=== PATIENT | female | born 1980 | race Caucasian/White ===

== ENCOUNTER 2018-08-13 12:27 | Emergency (ER) | payer MEDICARE, BC ==
[~2018-08-13] VITALS: Ht 160 cm; Wt 97.5 kg
[2018-08-13] MEDS ORDERED: IV NORMAL SALINE 1000ML BAG 1,000 ML IV SCH (12:57)
[2018-08-13] MEDS ORDERED: PROCHLORPERAZINE 10 MG/2 ML VIAL. IV ONE (13:00)
[2018-08-13] MEDS ORDERED: HALOPERIDOL LACTATE 5 MG/ML VIAL. IVP ONE (13:00)
--- NOTE | 2018-08-13 13:04 | PHYS DOC ---
Past Medical History Past Medical History: Fibromyalgia, IBS, Migraines, Other Additional Past Medical Histor: gastroporesis Past Medical History CYCLIC VOMITING SYNDROME Past Surgical History: Cholecystectomy, Tubal ligation, Other Additional Past Surgical Histo: deviated septum repair Alcohol Use: None Drug Use: Marijuana Adult General Chief Complaint Chief Complaint: NAUSEA/VOMITING/DIARRHA HPI HPI Patient is a 38 year old female presented to ER today for evaluation of nausea vomiting and abdominal pain. Patient says she had a long-standing history of gastroparesis and cyclic vomiting syndrome. Patient had been evaluated numerous time at [facility]. Patient was seen by her GI doctor today, who sent her here for evaluation because of the nausea vomiting. Patient was referred by her GI doctor to [facility] for further evaluation and treatment but she declined to go there because of financial constraint. She denies any fever. Patient denies any chest pain or any trouble breathing. She said her symptoms today is very typical of her chronic problem. Review of Systems Review of Systems Constitutional: Denies fever or chills [] Eyes: Denies change in visual acuity, redness, or eye pain [] HENT: Denies nasal congestion or sore throat [] Respiratory: Denies cough or shortness of breath [] Cardiovascular: No additional information not addressed in HPI [] GI: Positive abdominal pain, nausea, vomiting and diarrhea [] : Denies dysuria or hematuria [] Musculoskeletal: Denies back pain or joint pain [] Integument: Denies rash or skin lesions [] Neurologic: Denies headache, focal weakness or sensory changes [] Endocrine: Denies polyuria or polydipsia [] All other systems were reviewed and found to be within normal limits, except as documented in this note. Current Medications Current Medications Current Medications Medications (Trade) Dose Ordered Sig/Sonia Start Time Stop Time Status Last Admin Dose Admin Haloperidol Lactate (Haldol Inj) 5 mg 1X ONCE 08/13/18 13:00 08/13/18 13:03 DC 08/13/18 13:32 5 MG Lorazepam (Ativan) 2 mg 1X ONCE 08/13/18 13:00 08/13/18 13:03 DC 08/13/18 13:29 2 MG Prochlorperazine Edisylate (Compazine) 10 mg 1X ONCE 08/13/18 13:00 08/13/18 13:03 DC 08/13/18 13:34 10 MG Sodium Chloride 1,000 ml @ 1,000 mls/hr 1X ONCE 08/13/18 14:00 08/13/18 14:59 DC 08/13/18 14:36 1,000 MLS/HR Allergies Allergies Allergies Coded Allergies Type Severity Reaction Last Updated Verified Penicillins Allergy Intermediate "mild rash" 08/13/18 Yes Physical Exam Physical Exam Constitutional: Well developed, well nourished, no acute distress, non-toxic appearance. [] HENT: Normocephalic, atraumatic, bilateral external ears normal, oropharynx moist, no oral exudates, nose normal. [] Eyes: PERRLA, EOMI, conjunctiva normal, no discharge. [] Neck: Normal range of motion, no tenderness, supple, no stridor. [] Cardiovascular:Heart rate regular rhythm, no murmur [] Lungs & Thorax: Bilateral breath sounds clear to auscultation [] Abdomen: Bowel sounds normal, soft, tenderness to palpation in epigastric area, no masses, no pulsatile masses. [] Skin: Warm, dry, no erythema, no rash. [] Back: No tenderness, no CVA tenderness. [] Extremities: No tenderness, no cyanosis, no clubbing, ROM intact, no edema. [] Neurologic: Alert and oriented X 3, normal motor function, normal sensory function, no focal deficits noted. [] Psychologic: Affect normal, judgement normal, mood normal. [] Current Patient Data Vital Signs Vital Signs Date Time Temp Pulse Resp B/P (MAP) Pulse Ox O2 Delivery O2 Flow Rate FiO2 08/13/18 16:30 108 20 128/65 (86) 96 Room Air 08/13/18 16:00 2.0 08/13/18 12:30 98.1 98.1 Lab Values Laboratory Tests Test 08/13/18 12:47 08/13/18 13:15 Urine Collection Type Unknown Urine Color Yellow Urine Clarity Clear Urine pH 6.0 Urine Specific [place] 1.025 Urine Protein 30 mg/dL (NEG-TRACE) Urine Glucose (UA) Negative mg/dL (NEG) Urine Ketones (Stick) >=80 mg/dL (NEG) Urine Blood Negative (NEG) Urine Nitrite Negative (NEG) Urine Bilirubin Negative (NEG) Urine Urobilinogen Dipstick 0.2 mg/dL (0.2 mg/dL) Urine Leukocyte Esterase Negative (NEG) Urine RBC 3-5 /HPF (0-2) Urine WBC 5-10 /HPF (0-4) Urine Squamous Epithelial Cells Mod /LPF Urine Bacteria Few /HPF (0-FEW) Urine Mucus Marked /LPF White Blood Count 9.4 x10^3/uL (4.0-11.0) Red Blood Count 4.55 x10^6/uL (3.50-5.40) Hemoglobin 11.8 g/dL (12.0-15.5) L Hematocrit 37.1 % (36.0-47.0) Mean Corpuscular Volume 82 fL (79-100) Mean Corpuscular Hemoglobin 26 pg (25-35) Mean Corpuscular Hemoglobin Concent 32 g/dL (31-37) Red Cell Distribution Width 15.9 % (11.5-14.5) H Platelet Count 304 x10^3/uL (140-400) Neutrophils (%) (Auto) 85 % (31-73) H Lymphocytes (%) (Auto) 10 % (24-48) L Monocytes (%) (Auto) 5 % (0-9) Eosinophils (%) (Auto) 0 % (0-3) Basophils (%) (Auto) 0 % (0-3) Neutrophils # (Auto) 8.0 x10^3uL (1.8-7.7) H Lymphocytes # (Auto) 1.0 x10^3/uL (1.0-4.8) Monocytes # (Auto) 0.5 x10^3/uL (0.0-1.1) Eosinophils # (Auto) 0.0 x10^3/uL (0.0-0.7) Basophils # (Auto) 0.0 x10^3/uL (0.0-0.2) Sodium Level 140 mmol/L (136-145) Potassium Level 3.4 mmol/L (3.5-5.1) L Chloride Level 102 mmol/L (98-107) Carbon Dioxide Level 24 mmol/L (21-32) Anion Gap 14 (6-14) Blood Urea Nitrogen 6 mg/dL (7-20) L Creatinine 0.7 mg/dL (0.6-1.0) Estimated GFR (Cockcroft-Gault) 94.7 BUN/Creatinine Ratio 9 (6-20) Glucose Level 110 mg/dL (70-99) H Calcium Level 9.0 mg/dL (8.5-10.1) Total Bilirubin 0.5 mg/dL (0.2-1.0) Aspartate Amino Transferase (AST) 17 U/L (15-37) Alanine Aminotransferase (ALT) 25 U/L (14-59) Alkaline Phosphatase 73 U/L (46-116) Total Protein 7.5 g/dL (6.4-8.2) Albumin 3.6 g/dL (3.4-5.0) Albumin/Globulin Ratio 0.9 (1.0-1.7) L Lipase 54 U/L (73-393) L Laboratory Tests 08/13/18 13:15 Laboratory Tests 08/13/18 13:15 EKG EKG [] Radiology/Procedures Radiology/Procedures [][facility] [address] [place] [address] IMAGING REPORT Signed PATIENT: EVAN GORMAN ACCOUNT: [id number] : 1980 LOCATION: ER AGE: 38 SEX: F EXAM STATUS: REG ER ORD. PHYSICIAN: CHAPARRITA HECK DO REASON: NAUSEA, VOMITING, ABDOMINAL PAIN PROCEDURE: ACUTE ABDOMEN SERIES Indication: Nausea, vomiting and abdominal pain. TECHNIQUE: AP chest and 2 views of the abdomen and pelvis COMPARISON: None FINDINGS: Heart is normal in size. Lungs are clear. No pneumothorax or pleural effusion. No pneumoperitoneum. No abnormally dilated bowel loops or air-fluid levels. Paucity of bowel gas in all 4 quadrants. No abnormal calcific densities ejecting over the kidneys to suggest apparent renal stones. Visualized bones are within normal limits. IMPRESSION: No evidence of high-grade bowel obstruction. Electronically signed by: Brendan Barton DO (08/13/2018 2:15 PM) [id number] DICTATED and SIGNED BY: BRENDAN BARTON DO DATE: 08/13/18 1414 Course & Med Decision Making Course & Med Decision Making Pertinent Labs and Imaging studies reviewed. (See chart for details) Patient was given IV fluid, nausea medication, Haldol and ativan iv. Patient had been sleeping in the ER without any problem. Patient felt much better. Patient will be discharged home. Dragon Disclaimer Dragon Disclaimer This electronic medical record was generated, in whole or in part, using a voice recognition dictation system. Departure Departure Impression: Primary Impression: Gastroparesis Additional Impression: Cyclic vomiting syndrome Disposition: HOME, SELF-CARE Condition: IMPROVED Referrals: UNKNOWN PCP NAME (PCP) FOLLOW UP WITH YOUR GI SPECIALIST THIS WEEK FOR REEVALUATION. Patient Instructions: Cyclic Vomiting Syndrome, Gastroparesis Scripts Metoclopramide Hcl (REGLAN) 10 Mg Tablet 1 TAB PO QID PRN for NAUSEA for 20 Days, #80 TAB Prov: CHAPARRITA HECK DO 08/13/18 Problem Qualifiers CHAPARRITA HECK DO Aug 13, 2018 13:04
[2018-08-13 13:14] LABS: BILIRUBIN,URINE NEGATIVE (NEG); CLARITY,URINE CLEAR; COLOR,URINE YELLOW; NITRITE,URINE NEGATIVE (NEG); PROTEIN,URINE 30 mg/dL (NEG-TRACE); UROBILINOGEN,URINE 0.2 mg/dL (0.2 mg/dL)
[2018-08-13 13:26] LABS: SQUAMOUS EPITHELIAL CELL,UR MOD /LPF
[2018-08-13 13:27] LABS: BACTERIA,URINE FEW /HPF (0-FEW)
[2018-08-13 13:28] LABS: BASO % 0 % (0-3); EOS % 0 % (0-3); HEMATOCRIT 37.1 % (36.0-47.0); HEMOGLOBIN 11.8 g/dL (12.0-15.5); LYMPH % 10 % (24-48); MEAN CORPUSCULAR HEMOGLOBIN 26 pg (25-35); MEAN CORPUSCULAR HGB CONC 32 g/dL (31-37); MEAN CORPUSCULAR VOLUME 82 fL (79-100); MONO # 0.5 x10^3/uL (0.0-1.1); MONO % 5 % (0-9); NEUT % 85 % (31-73); PLATELET COUNT 304 x10^3/uL (140-400); RED BLOOD COUNT 4.55 x10^6/uL (3.50-5.40); RED CELL DISTRIBUTION WIDTH 15.9 % (11.5-14.5); WHITE BLOOD COUNT 9.4 x10^3/uL (4.0-11.0)
[2018-08-13 13:38] LABS: CREATININE 0.7 mg/dL (0.6-1.0); GFR 94.7; POTASSIUM 3.4 mmol/L (3.5-5.1)
[2018-08-13 13:43] LABS: ALBUMIN 3.6 g/dL (3.4-5.0); ALBUMIN/GLOBULIN RATIO 0.9 (1.0-1.7); TOTAL BILIRUBIN 0.5 mg/dL (0.2-1.0); TOTAL PROTEIN 7.5 g/dL (6.4-8.2)
[2018-08-13] MEDS ORDERED: IV NORMAL SALINE 1000ML BAG 1,000 ML IV ONE (14:00)
--- NOTE | 2018-08-13 14:19 | RAD ---
Indication: Nausea, vomiting and abdominal pain. TECHNIQUE: AP chest and 2 views of the abdomen and pelvis COMPARISON: None FINDINGS: Heart is normal in size. Lungs are clear. No pneumothorax or pleural effusion. No pneumoperitoneum. No abnormally dilated bowel loops or air-fluid levels. Paucity of bowel gas in all 4 quadrants. No abnormal calcific densities ejecting over the kidneys to suggest apparent renal stones. Visualized bones are within normal limits. IMPRESSION: No evidence of high-grade bowel obstruction. Electronically signed by: Brendan Peterson DO (08/13/2018 2:15 PM) [id number]
[2018-08-13 16:30] VITALS: BP 128/65
[2018-08-13] MEDS ORDERED: METO10TA81 PO (16:34)
== END 2018-08-13 17:00 | disposition home or self-care (01) ==
LOC: ER 12:27
DX: K31.84 Gastroparesis (principal); G43.A0 Cyclical vomiting, in migraine, not intractable; R19.7 Diarrhea, unspecified; K58.9 Irritable bowel syndrome, unspecified; G43.909 Migraine, unspecified, not intractable, without status migrainosus; Z90.49 Acquired absence of other specified parts of digestive tract; Z98.51 Tubal ligation status; Z88.0 Allergy status to penicillin
CPT/HCPCS: 36415; 74022; 80053; 81001; 83690; 85025; 87086; 96361; 96374; 96375; 99284; J0780; J1630; J2060; J7030

== ENCOUNTER 2020-06-03 12:30 | Emergency (ER) | payer MEDICARE, BC ==
[~2020-06-03] VITALS: Ht 160 cm; Wt 109.0 kg
[~2020-06-03 12:30] MED LIST: METO10TA81 PO
[2020-06-03 12:45] VITALS: BP 179/85
[2020-06-03] MEDS ORDERED: LIDO:MAALOX 1:1 20 ML SINGLE DOSE. SWSW ONE (13:00)
[2020-06-03 13:30] LABS: BILIRUBIN,URINE NEGATIVE (NEG); CLARITY,URINE CLEAR; COLOR,URINE YELLOW; NITRITE,URINE NEGATIVE (NEG); PROTEIN,URINE NEGATIVE (NEG-TRACE); UROBILINOGEN,URINE 0.2 mg/dL (0.2 mg/dL)
[2020-06-03] MEDS ORDERED: ONDANSETRON PF 4 MG/2 ML VIAL. IVP ONE (13:30)
[2020-06-03] MEDS ORDERED: DICYCLOMINE 20 MG/2 ML VIAL. IM ONE (13:30)
[2020-06-03] MEDS ORDERED: FAMOTIDINE 20 MG/2 ML VIAL IVP ONE (13:30)
[2020-06-03] MEDS ORDERED: IV NORMAL SALINE 1000ML BAG 1,000 ML IV ONE (13:30)
[2020-06-03 13:36] LABS: BARBITURATES POS (NEG); BENZODIAZEPINES POS (NEG); CANNABINOIDS POS (NEG); COCAINE NEG (NEG); METHADONE NEG (NEG); OPIATES NEG (NEG); PHENCYCLIDINE NEG (NEG)
[2020-06-03 13:37] LABS: AMPHETAMINE/METHAMPHETAMINE NEG (NEG)
--- NOTE | 2020-06-03 13:38 | PHYS DOC ---
Past Medical History Past Medical History: Fibromyalgia, IBS, Migraines, Other Additional Past Medical Histor: gastroporesis Past Surgical History: Cholecystectomy, Tubal ligation, Other Additional Past Surgical Histo: deviated septum repair Smoking Status: Former Smoker Alcohol Use: None Drug Use: Marijuana General Adult EDM: Chief Complaint: NAUSEA/VOMITING/DIARRHA HPI: HPI: Patient is a 39 year old female with a history of gastroparesis, cyclic vomiting, fibromyalgia, migraine headaches, who presents to the ED today complaining of moderate epigastric abdominal pain with nausea vomiting and epigastric spasms that is chronic in nature but has gotten worse in the last 4 days. Patient states she came to [facility] because her GI doctor Dr. Knapp requested her to come here to get nausea medicine and narcotics. She is very insistent on getting the narcotics. She states she has medical marijuana card as well as scopolamine. She states she gets the medical marijuana from Dr. Tyree cotton doctor with no office and only has an email address. Patient is very tearful and insisting on getting narcotic. Even when I told her it would be reasonable to get a work-up first and see if this adequate indication for narcotics considering we see a lot of patients with pain complaints and requesting pain medicine for no serious indication. Review of Systems: Review of Systems: Constitutional: Denies fever or chills. [] Eyes: Denies change in visual acuity. [] HENT: Denies nasal congestion or sore throat. [] Respiratory: Denies cough or shortness of breath. [] Cardiovascular: Denies chest pain or edema. [] GI: Reports epigastric abdominal pain with nausea and vomiting, denies bloody stools or diarrhea. [] : Denies dysuria. [] Musculoskeletal: Denies back pain or joint pain. [] Integument: Denies rash. [] Neurologic: Denies headache, focal weakness or sensory changes. [] [] Psychiatric: Denies depression or anxiety. [] Heart Score: Risk Factors: Risk Factors: DM, Current or recent (<one month) smoker, HTN, HLP, family history of CAD, obesity. Risk Scores: Score 0 - 3: 2.5% MACE over next 6 weeks - Discharge Home Score 4 - 6: 20.3% MACE over next 6 weeks - Admit for Clinical Observation Score 7 - 10: 72.7% MACE over next 6 weeks - Early Invasive Strategies Current Medications: Current Medications Medications (Trade) Dose Ordered Sig/Sonia Start Time Stop Time Status Last Admin Dose Admin Dicyclomine HCl (Bentyl) 20 mg 1X ONCE 06/03/20 13:30 06/03/20 13:31 DC Famotidine (Pepcid Vial) 20 mg 1X ONCE 06/03/20 13:30 06/03/20 13:31 DC Multi-Ingredient Mouthwash/Gargle (Gi Cocktail) 20 ml 1X ONCE 06/03/20 13:00 06/03/20 13:14 DC Ondansetron HCl (Zofran) 4 mg 1X ONCE 06/03/20 13:30 06/03/20 13:31 DC Sodium Chloride 1,000 ml @ 1,000 mls/hr 1X ONCE 06/03/20 13:30 06/03/20 14:29 Allergies: Allergies: Allergies Coded Allergies Type Severity Reaction Last Updated Verified Penicillins Allergy Intermediate "mild rash" 08/13/18 Yes Sulfa (Sulfonamide Antibiotics) Allergy Intermediate 06/03/20 Yes Physical Exam: PE: Constitutional: Well developed, well nourished, no acute distress, non-toxic a ppearance. [] HENT: Normocephalic, atraumatic, bilateral external ears normal, oropharynx moist, no oral exudates, nose normal. [] Eyes: PERRLA, EOMI, conjunctiva normal, no discharge. [] Neck: Normal range of motion, no tenderness, supple, no stridor. [] Cardiovascular:Heart rate regular rhythm, no murmur [] Lungs & Thorax: Bilateral breath sounds clear to auscultation [] Abdomen: Bowel sounds normal, soft, slight epigastric tenderness, no masses, no pulsatile masses. [] Skin: Warm, dry, no erythema, no rash. [] Back: No tenderness, no CVA tenderness. [] Extremities: No tenderness, no cyanosis, no clubbing, ROM intact, no edema. [] Neurologic: Alert and oriented X 3, normal motor function, normal sensory function, no focal deficits noted. [] Psychologic: Flat affect, very tearful Current Patient Data: Labs: Laboratory Tests Test 06/03/20 12:41 POC Urine HCG, Qualitative Hcg negative (Negative) Vital Signs: Vital Signs Date Time Temp Pulse Resp B/P (MAP) Pulse Ox O2 Delivery O2 Flow Rate FiO2 06/03/20 12:45 98.2 101 14 179/85 (116) 99 Room Air 98.2 EKG: EKG: [] Radiology/Procedures: Radiology/Procedures: [] Course & Med Decision Making: Course & Med Decision Making Pertinent Labs and Imaging studies reviewed. (See chart for details) This is a 39-year-old female patient presented to the ED today complaining of epigastric abdominal pain with nausea vomiting for 4 days and insisting on getting Compazine and a narcotic stating this is the only thing that works for her pain and recommended by her own GI doctor Dr. Knapp off note patient is from [facility]. Patient admits to using marijuana and states she has has an rx for it from Dr. Clements an online doctor with no contact inforatmion apart from email. CBC with a WBC of 13.2, CMP with potassium of 3.2. Urine analysis appears grossly contaminated with squamous cells epithelium. Patient was given IV fluids in the ED. Given Compazine. Discharge to home. Dragon Disclaimer: Dragon Disclaimer: This electronic medical record was generated, in whole or in part, using a voice recognition dictation system. Departure Departure Impression: Primary Impression: Gastroparesis Additional Impressions: Marijuana use Cyclic vomiting syndrome Disposition: 01 DC HOME SELF CARE/HOMELESS Condition: STABLE Referrals: PIOTR KNAPP MD (PCP) follow up next week Patient Instructions: Gastroparesis Additional Instructions: Please follow up with your doctor next week KRISTY ARRIAGA APRN Jun 03, 2020 13:38
[2020-06-03 13:40] LABS: BACTERIA,URINE MANY /HPF (0-FEW)
[2020-06-03 13:42] LABS: RBC,URINE 0 /HPF (0-2)
[2020-06-03 13:50] LABS: ALBUMIN 3.4 g/dL (3.4-5.0); ALBUMIN/GLOBULIN RATIO 0.8 (1.0-1.7); CALCIUM 8.7 mg/dL (8.5-10.1); CREATININE 0.7 mg/dL (0.6-1.0); GFR 94.2; POTASSIUM 3.2 mmol/L (3.5-5.1); TOTAL BILIRUBIN 0.4 mg/dL (0.2-1.0); TOTAL PROTEIN 7.5 g/dL (6.4-8.2)
[2020-06-03] MEDS ORDERED: HALOPERIDOL LACTATE 5 MG/ML VIAL. IVP ONE ×2 (14:00)
[2020-06-03] MEDS ORDERED: PROCHLORPERAZINE 10 MG/2 ML VIAL. IV ONE (14:00)
[2020-06-03 14:02] LABS: BASO # 0.1 x10^3/uL (0.0-0.2); BASO % 1 % (0-3); EOS % 0 % (0-3); HEMATOCRIT 35.1 % (36.0-47.0); HEMOGLOBIN 11.5 g/dL (12.0-15.5); LYMPH # 1.2 x10^3/uL (1.0-4.8); LYMPH % 9 % (24-48); MEAN CORPUSCULAR HEMOGLOBIN 26 pg (25-35); MEAN CORPUSCULAR HGB CONC 33 g/dL (31-37); MEAN CORPUSCULAR VOLUME 78 fL (79-100); MONO # 0.6 x10^3/uL (0.0-1.1); MONO % 5 % (0-9); NEUT # 11.3 x10^3/uL (1.8-7.7); NEUT % 86 % (31-73); PLATELET COUNT 316 x10^3/uL (140-400); RED CELL DISTRIBUTION WIDTH 16.4 % (11.5-14.5); WHITE BLOOD COUNT 13.2 x10^3/uL (4.0-11.0)
[2020-06-03 16:03] LABS: % BANDS 1 % (0-9); % LYMPHS 9 % (24-48); % MONOS 3 % (0-10); % SEGS 87 % (35-66); PLT ESTIMATE ADEQUATE (ADEQUATE); POLYCHROMASIA SLIGHT
[2020-06-03 16:04] LABS: TOXIC GRANULATION SLIGHT
== END 2020-06-03 15:48 | disposition home or self-care (01) ==
LOC: ER 12:30
DX: K31.84 Gastroparesis (principal); F12.90 Cannabis use, unspecified, uncomplicated; R11.15 Cyclical vomiting syndrome unrelated to migraine; G43.909 Migraine, unspecified, not intractable, without status migrainosus; F19.20 Other psychoactive substance dependence, uncomplicated; K58.9 Irritable bowel syndrome, unspecified; Z87.891 Personal history of nicotine dependence; Z90.49 Acquired absence of other specified parts of digestive tract; Z98.51 Tubal ligation status; Z88.0 Allergy status to penicillin; Z88.2 Allergy status to sulfonamides
CPT/HCPCS: 36415; 80053; 80307; 81001; 81025; 83690; 85007; 85025; 96361; 96372; 96374; 96375; 99284; G0480; J0500; J1630; J2405; J3490; J7030